=== PATIENT | female | born 1960 | race African-American/Black ===

== ENCOUNTER 2019-03-07 21:55 | Emergency (ER) | payer OTHER ==
[2019-03-07] MEDS ORDERED: Ondansetron PF 4 MG/2 ML Vial ONE (22:04)
== END 2019-03-08 00:22 | disposition home or self-care (01) ==
LOC: ERS 21:55
DX: E16.2 Hypoglycemia, unspecified (principal); F10.129 Alcohol abuse with intoxication, unspecified; R11.2 Nausea with vomiting, unspecified; E78.00 Pure hypercholesterolemia, unspecified; F41.9 Anxiety disorder, unspecified; F31.9 Bipolar disorder, unspecified
CPT/HCPCS: 36416; 96374; J2405